=== PATIENT | male | born 1985 | race Caucasian/White ===

== ENCOUNTER 2018-07-21 05:22 | Inpatient (IN) | payer MEDICARE, OTHER ==
[~2018-07-21] VITALS: Ht 162.6 cm; Wt 97.0 kg
[~2018-07-21 05:22] MED LIST: ALBUTEROL INH; AMLO-150 PO; CALC0.25 PO; CALC667C PO; CHOL500045 PO; CLON0.1T22 PO; DOXA2TAB9 PO; FLUC200T PO; FURO40TA6 PO; INSU100I29 SQ-INSULIN; INSU100V11 SQ; INSU100V8 SQ; LOPE2CAP PO; METO25TA35 PO; METO50TA82 PO; MYCO250C PO; NOVALOG; OMEP-110 PO; ONDA4TAB10 PO; ONDA4TAB7 PO; PRAV20TA2 PO; PRED10TA14 PO; PRED5TAB PO; SODI650T PO; SULF1TAB23 PO; TACR1CAP4 PO; [UNRECOGNIZED DRUG - OTHER]; lantus
--- NOTE | 2018-07-21 05:34 | NUR ---
PT. TO ED WITH C/O N/V AND ABD PAIN SINCE YESTERDAY. SKIN PWD. PT. STATES "I JUST WANT TO MAKE SURE NOTHING IS WRONG WITH MY HX OF TRANSPLANTS." PT. CHANGING INTO GOWN; AWARE OF NEED FOR URINE SAMPLE. AWAITING PROVIDER EVAL. CALL LIGHT IN REACH.
--- NOTE | 2018-07-21 05:54 | NUR ---
URINE HAS BEEN SENT TO LAB. IV STARTED AND LABS DRAWN. IVF INFUSING PER ORDER. DR. MUKHERJEE AT DISCUSSING POC WITH PT. CALL LIGHT IN REACH. ALL SAFETY MEASURES OBSERVED.
[2018-07-21 06:00] LABS: MICROSCOPIC NOT IND
[2018-07-21] MEDS ORDERED: SODIUM CHLORIDE 0.9% 1,000ML IVBOLUS ONE (06:00)
[2018-07-21] MEDS ORDERED: SODIUM CHLORIDE FLUSH 10ML SYR IVF ONE (06:00)
[2018-07-21] MEDS ORDERED: ONDANSETRON 2MG/ML, 2ML IVPush ONE (06:00)
[2018-07-21 06:03] LABS: CULTURE INDICATED? NO
[2018-07-21 06:12] LABS: MEAN CORPUSCULAR HEMOGLOBIN 30.1 pg (27.5-34.5); MEAN CORPUSCULAR HGB CONC 33.8 g/dL (33.2-36.2); MEAN CORPUSCULAR VOLUME 89.1 fL (81-97); MEAN PLATELET VOLUME 10.5 fL (7.4-10.4); PLATELET COUNT 208 x10^3/uL (130-400); RED BLOOD COUNT 5.18 x10^6/uL (4.38-5.82); RED CELL DISTRIBUTION WIDTH 13.2 % (9.4-14.8)
[2018-07-21 06:22] LABS: ALANINE AMINOTRANSFERASE 48 U/L (12-78); ALBUMIN 3.9 g/dL (3.4-5.0); ANION GAP 7 mmol/L (5-15); CALCIUM 8.7 mg/dL (8.5-10.1); CHLORIDE 107 mmol/L (98-107)
[2018-07-21 06:24] LABS: ALKALINE PHOSPHATASE 60 U/L (45-117); BILIRUBIN,TOTAL 1.4 mg/dL (0.2-1.0); CREATININE 1.29 mg/dL (0.7-1.3)
--- NOTE | 2018-07-21 06:30 | NUR ---
IVF COMPLETED. VS UPDATED. PT. DENIES NEEDS. CALL LIGHT IN REACH. SAFETY MEASURES OBSERVED. ALL LABS BACK; CT TO BE ORDERED PER DR. MUKHERJEE.
[2018-07-21 06:43] LABS: BASOPHILS # (AUTO) 0.04 x10^3/uL (0-0.1); BASOPHILS % (AUTO) 0 % (0-1); EOSINOPHILS # (AUTO) 0.11 x10^3/uL (0-0.4); EOSINOPHILS % (AUTO) 1 % (1-7); LYMPHOCYTES # (AUTO) 1.01 x10^3/uL (1-3.4); LYMPHOCYTES % (AUTO) 7 % (22-44); MD SCAN; MONOCYTES # (AUTO) 1.63 x10^3/uL (0.2-0.8); MONOCYTES % (AUTO) 11 % (2-9); NEUTROPHILS % (AUTO) 81 % (42-75)
--- NOTE | 2018-07-21 07:01 | NUR ---
REPORT RECEIVED, CARE ASSUMED. PT SITTING UP ON GURNEY, NO ACUTE DISTRESS NOTED. IV FLUIDS COMPLETED. NO C/O N/V AT THIS TIME. PT AWARE OF WAITING FOR CT RESULTS. NO NEEDS EXPRESSED AT THIS TIME.
[2018-07-21] MEDS ORDERED: TACR1CAP4 PO (07:16)
[2018-07-21] MEDS ORDERED: OMEP-110 PO (07:16)
[2018-07-21] MEDS ORDERED: MYCO360T PO (07:16)
[2018-07-21] MEDS ORDERED: ASPI-496 PO (07:17)
[2018-07-21] MEDS ORDERED: CEFTRIAXONE PMX 1GM/50ML 50 ML IV ONE (07:30)
[2018-07-21] MEDS ORDERED: CEFTRIAXONE PMX 1GM/50ML 50 ML ONE (07:36)
--- NOTE | 2018-07-21 07:46 | NUR ---
IV ROCEPHIN INFUSING ORDERED. CONFIRMED WITH DR MUKHERJEE, NO BLOOD CULTURES NEEDED. PT AWARE OF POC. NO NEEDS EXPRESSED AT THIS TIME.
[2018-07-21] MEDS ORDERED: BISACODYL 10 MG SUPP PR PRN (08:30)
[2018-07-21] MEDS ORDERED: hydrALAzine 20 MG/ML, 1ML IVPush PRN (08:30)
[2018-07-21] MEDS ORDERED: DOCUSATE 100 MG CAPSULE PO PRN (08:30)
[2018-07-21] MEDS ORDERED: morphine SULFATE 10 MG/ML, 1ML IVPush PRN (08:30)
[2018-07-21] MEDS ORDERED: LABETALOL 5MG/ML, 20ML IVPush PRN (08:30)
[2018-07-21] MEDS ORDERED: ACETAMINOPHEN 325 MG TABLET PO PRN (08:30)
[2018-07-21] MEDS ORDERED: POLYETHYLENE GLYCOL 17 GM PACKET PO PRN (08:30)
[2018-07-21] MEDS ORDERED: PREDNISONE 5 MG PO SCH (09:00)
--- NOTE | 2018-07-21 09:30 | NUR ---
PT AMB TO BR, GAIT STEADY. PT PROVIDED WITH WARM BLANKET. PT AWARE OF WAITING FOR ROOM ASSIGNMENT. PTS AT BEDSIDE. NO NEEDS EXPRESSED AT THIS TIME.
[2018-07-21] MEDS ORDERED: METRONIDAZOLE PMX 500MG/100ML 100 ML ONE (09:38)
[2018-07-21] MEDS ORDERED: hydrALAzine 20 MG/ML, 1ML ONE (09:38)
[2018-07-21] MEDS ORDERED: NS + 20MEQ KCL 1,000 ML IV ONE (09:39)
--- NOTE | 2018-07-21 09:48 | NUR ---
CALL TO CHARY Morocho NP, DISCUSSED PT TO HAVE SURGERY AT 1330. ANTIREJECTION MEDICATIONS TO BE GIVEN WITH SIP OF WATER. DISCUSSED ROCEPHIN 2GM ORDER, PT HAS ALREADY RECEIVED 1 GM. TRANSPORTATION SUPERVISOR WILL PLACE ORDER FOR AN ADDITION GRAM OF ROCEPIN AND 2 GRAM ORDER CAN START TOMORROW. PT BP ELEVATED 178/107. PT TO BE MEDICATED WITH LABATOLOL.
[2018-07-21] MEDS: TACROLIMUS 1 MG CAPSULE PO SCH ×2 (09:58→21:13)
[2018-07-21] MEDS: METRONIDAZOLE PMX 500MG/100ML 100 ML IV SCH ×2 (09:59→17:21)
[2018-07-21] MEDS: NS + 20MEQ KCL 1,000 ML IV SCH ×2 (10:00→17:21)
--- NOTE | 2018-07-21 10:14 | NUR ---
REPORT CALLED TO ERROL BROWN IN PRE OP HOLDING. POC DISCUSSED. PT TO GO TO ROOM 1A.
[2018-07-21] MEDS ORDERED: LABETALOL 5 MG/ML SYRINGE IVPush PRN ×2 (10:30)
[2018-07-21] MEDS ORDERED: PRED5TAB PO (10:54)
[2018-07-21] MEDS ORDERED: BUPIVACAINE/PF 0.5% ONE (13:23)
[2018-07-21] MEDS ORDERED: CEFAZOLIN 1,000 MG ONE (13:33)
[2018-07-21] MEDS ORDERED: NEOSTIGMINE 1 MG/ML, 10ML ONE (13:33)
[2018-07-21] MEDS ORDERED: SUCCINYLCHOLINE 20 MG/ML, 10ML ONE (13:33)
[2018-07-21] MEDS ORDERED: GLYCOPYRROLATE 0.2MG/1ML, 5ML ONE (13:33)
[2018-07-21] MEDS ORDERED: FENTANYL PF 250 MCG/5ML ONE (13:33)
[2018-07-21] MEDS ORDERED: ROCURONIUM 10MG/ML,5ML ONE (13:33)
[2018-07-21] MEDS ORDERED: MIDAZOLAM 1 MG/ML, 2ML ONE (13:33)
[2018-07-21] MEDS ORDERED: PROPOFOL 10 MG/ML, 20ML ONE (13:33)
[2018-07-21] MEDS ORDERED: HYDROCORTISONE 100 MG INJ. ONE (13:48)
[2018-07-21] MEDS ORDERED: PROMETHAZINE 25 MG SUPP PR PRN (14:00)
[2018-07-21] MEDS ORDERED: ONDANSETRON ODT 8 MG PO PRN (14:00)
[2018-07-21] MEDS ORDERED: HYDROmorphone 2 MG/ML, 1ML IVPush PRN (14:00)
[2018-07-21] MEDS ORDERED: PROMETHAZINE 25 MG/ML, 1ML IV PRN (14:00)
[2018-07-21] MEDS ORDERED: hydrALAzine 20 MG/ML, 1ML IV PRN (14:00)
[2018-07-21] MEDS ORDERED: LABETALOL 5MG/ML, 20ML IV PRN (14:00)
[2018-07-21] MEDS ORDERED: MORPHINE SULFATE 4 MG/ML, 1ML IVPush PRN (14:00)
[2018-07-21] MEDS ORDERED: PROMETHAZINE 25 MG/ML, 1ML IM PRN ×2 (14:00)
[2018-07-21] MEDS ORDERED: PROMETHAZINE 12.5 MG SUPP PR PRN (14:00)
[2018-07-21] MEDS ORDERED: MEPERIDINE/PF 25MG/0.5ML IVPush PRN (14:00)
[2018-07-21] MEDS ORDERED: OXYcodone 5 MG/5 ML ORAL.SOL UDC PO PRN (14:00)
[2018-07-21] MEDS ORDERED: ONDANSETRON 2MG/ML, 2ML IV PRN (14:00)
[2018-07-21] MEDS ORDERED: SUGAMMADEX 200 MG/2 ML IVPush ONE (14:46)
[2018-07-21] MEDS ORDERED: FENTANYL PF 100 MCG/2ML ONE (15:27)
[2018-07-21] MEDS ORDERED: OXYcodone 5 MG/5 ML ORAL.SOL UDC ONE (15:27)
[2018-07-21] MEDS ORDERED: ACETAMINOPHEN 650 MG/20.3 ML UDC ONE (15:27)
[2018-07-21] MEDS: FENTANYL PF 100 MCG/2ML IV PRN ×2 (15:30→15:50)
[2018-07-21] MEDS: OMEPRAZOLE 20 MG CAPSULE.DR PO SCH (16:44)
[2018-07-21] MEDS ORDERED: LORazepam 1MG TABLET PO PRN (17:00)
[2018-07-21] MEDS ORDERED: LORazepam 2 MG/ML, 1ML IV PRN (17:00)
[2018-07-21 19:19] VITALS: BP 129/85
[2018-07-21] MEDS ORDERED: ASPIRIN 81 MG TABLET EC PO SCH (21:00)
[2018-07-21] MEDS: ONDANSETRON 2MG/ML, 2ML IVPush PRN (23:49)
[2018-07-22 00:49] VITALS: BP 108/66
[2018-07-22] MEDS: METRONIDAZOLE PMX 500MG/100ML 100 ML IV SCH ×3 (01:44→16:57)
[2018-07-22 03:53] LABS: MEAN CORPUSCULAR HEMOGLOBIN 29.9 pg (27.5-34.5); MEAN CORPUSCULAR HGB CONC 33.2 g/dL (33.2-36.2); MEAN CORPUSCULAR VOLUME 90.1 fL (81-97); MEAN PLATELET VOLUME 10.3 fL (7.4-10.4); PLATELET COUNT 188 x10^3/uL (130-400); RED BLOOD COUNT 4.73 x10^6/uL (4.38-5.82); RED CELL DISTRIBUTION WIDTH 13.4 % (9.4-14.8)
[2018-07-22 03:57] LABS: ALANINE AMINOTRANSFERASE 33 U/L (12-78); ALBUMIN 3.2 g/dL (3.4-5.0); ANION GAP 6 mmol/L (5-15); CALCIUM 8.4 mg/dL (8.5-10.1); CHLORIDE 111 mmol/L (98-107); CREATININE 0.99 mg/dL (0.7-1.3)
[2018-07-22 03:59] LABS: ALKALINE PHOSPHATASE 54 U/L (45-117); BILIRUBIN,TOTAL 0.9 mg/dL (0.2-1.0); TOTAL PROTEIN 7.2 g/dL (6.4-8.2)
[2018-07-22 04:46] LABS: BASOPHILS # (AUTO) 0.05 x10^3/uL (0-0.1); BASOPHILS % (AUTO) 0 % (0-1); EOSINOPHILS # (AUTO) 0.03 x10^3/uL (0-0.4); EOSINOPHILS % (AUTO) 0 % (1-7); LYMPHOCYTES # (AUTO) 0.92 x10^3/uL (1-3.4); LYMPHOCYTES % (AUTO) 5 % (22-44); MD SCAN; MONOCYTES % (AUTO) 9 % (2-9); NEUTROPHILS # (AUTO) 15.63 x10^3/uL (1.8-6.8); NEUTROPHILS % (AUTO) 85 % (42-75)
[2018-07-22 06:57] VITALS: BP 130/75
[2018-07-22] MEDS: OMEPRAZOLE 20 MG CAPSULE.DR PO SCH (07:20)
[2018-07-22] MEDS: CEFTRIAXONE PMX 2GM/50ML 50 ML IV SCH (07:20)
[2018-07-22] MEDS: TACROLIMUS 1 MG CAPSULE PO SCH ×2 (07:20→21:26)
[2018-07-22] MEDS: NS + 20MEQ KCL 1,000 ML IV SCH (08:35)
[2018-07-22 12:02] VITALS: BP 131/83
[2018-07-22] MEDS ORDERED: HEPARIN 5,000 UNITS/ML, 1ML SQ SCH (13:00)
[2018-07-22] MEDS: HEPARIN 5,000 UNITS/ML, 1ML SQ SCH ×2 (13:15→21:28)
[2018-07-22 19:26] VITALS: BP 126/79
[2018-07-23] MEDS: METRONIDAZOLE PMX 500MG/100ML 100 ML IV SCH (01:58)
[2018-07-23 02:27] VITALS: BP 144/88
[2018-07-23] MEDS: NS + 20MEQ KCL 1,000 ML IV SCH (04:31)
[2018-07-23 05:23] LABS: BASOPHILS # (AUTO) 0.08 x10^3/uL (0-0.1); BASOPHILS % (AUTO) 1 % (0-1); EOSINOPHILS # (AUTO) 0.15 x10^3/uL (0-0.4); EOSINOPHILS % (AUTO) 2 % (1-7); LYMPHOCYTES # (AUTO) 1.66 x10^3/uL (1-3.4); LYMPHOCYTES % (AUTO) 17 % (22-44); MD NO; MEAN CORPUSCULAR HEMOGLOBIN 29.8 pg (27.5-34.5); MEAN CORPUSCULAR HGB CONC 33.1 g/dL (33.2-36.2); MEAN CORPUSCULAR VOLUME 90.1 fL (81-97); MEAN PLATELET VOLUME 10.8 fL (7.4-10.4); MONOCYTES # (AUTO) 1.16 x10^3/uL (0.2-0.8); MONOCYTES % (AUTO) 12 % (2-9); NEUTROPHILS # (AUTO) 6.87 x10^3/uL (1.8-6.8); NEUTROPHILS % (AUTO) 69 % (42-75); PLATELET COUNT 165 x10^3/uL (130-400); RED BLOOD COUNT 4.29 x10^6/uL (4.38-5.82); RED CELL DISTRIBUTION WIDTH 13.5 % (9.4-14.8)
[2018-07-23 05:26] LABS: ANION GAP 4 mmol/L (5-15); CALCIUM 8.4 mg/dL (8.5-10.1); CHLORIDE 110 mmol/L (98-107); CREATININE 1.13 mg/dL (0.7-1.3)
[2018-07-23] MEDS: HEPARIN 5,000 UNITS/ML, 1ML SQ SCH (05:44)
[2018-07-23] MEDS: CEFTRIAXONE PMX 2GM/50ML 50 ML IV SCH (07:35)
[2018-07-23] MEDS: ONDANSETRON 2MG/ML, 2ML IVPush PRN (07:44)
[2018-07-23 08:43] VITALS: BP 166/91
[2018-07-23] MEDS: TACROLIMUS 1 MG CAPSULE PO SCH (08:53)
[2018-07-23] MEDS: OMEPRAZOLE 20 MG CAPSULE.DR PO SCH (08:53)
[2018-07-23] MEDS ORDERED: OXYC-302 PO (13:38)
== END 2018-07-23 13:50 | disposition home or self-care (01) | DRG 854 ==
LOC: ED 07:49 → EDIP 07:50 → ED 08:35 → 4NOR 16:30 → DCLOUNGE 07-23 13:36
PROVIDERS: ADMIT Internal Medicine; ATTEND Internal Medicine
PROC: 0DTJ4ZZ Resection of Appendix, Percutaneous Endoscopic Approach (ICD-10-PCS; principal; 2018-07-21 13:30)
DX: A41.9 Sepsis, unspecified organism (principal); Z94.83 Pancreas transplant status; R17 Unspecified jaundice; Z94.0 Kidney transplant status; K35.20 Acute appendicitis with generalized peritonitis, without abscess; E10.22 Type 1 diabetes mellitus with diabetic chronic kidney disease; M10.9 Gout, unspecified; E10.40 Type 1 diabetes mellitus with diabetic neuropathy, unspecified; I13.10 Hypertensive heart and chronic kidney disease without heart failure, with stage 1 through stage 4 chronic kidney disease, or unspecified chronic kidney disease; N18.2 Chronic kidney disease, stage 2 (mild); Z79.4 Long term (current) use of insulin; Z88.8 Allergy status to other drugs, medicaments and biological substances; Z79.82 Long term (current) use of aspirin; Z82.3 Family history of stroke; Z82.49 Family history of ischemic heart disease and other diseases of the circulatory system; Z83.3 Family history of diabetes mellitus
CPT/HCPCS: 36415; 74176; 80048; 80053; 81003; 85025; 88304; 96361; 96365; 99285; G0378; J0690; J0696; J1644; J2250; J2405; J2704; J2710; J3010; J3480; J3490; J7507; J7518; J0330; J1720; J7030; J7512

== ENCOUNTER 2019-12-24 09:22 | Emergency (ER) | payer OTHER, MEDICARE ==
[~2019-12-24] VITALS: Ht 162.6 cm; Wt 104.8 kg
[~2019-12-24 09:22] MED LIST changes: +ASPI-496 PO; +MYCO360T PO; +OXYC-302 PO; -TACR1CAP4 PO; +TACR1CAP5 PO
[2019-12-24 10:28] LABS: BASOPHILS # (AUTO) 0.01 x10^3/uL (0-0.1); BASOPHILS % (AUTO) 0 % (0-1); EOSINOPHILS # (AUTO) 0.17 x10^3/uL (0-0.4); EOSINOPHILS % (AUTO) 2 % (1-7); LYMPHOCYTES # (AUTO) 0.69 x10^3/uL (1-3.4); LYMPHOCYTES % (AUTO) 7 % (22-44); MD NO; MEAN CORPUSCULAR HEMOGLOBIN 29.6 pg (27.5-34.5); MEAN CORPUSCULAR HGB CONC 33.1 g/dL (33.2-36.2); MEAN PLATELET VOLUME 10.3 fL (7.4-10.4); MONOCYTES # (AUTO) 1.17 x10^3/uL (0.2-0.8); MONOCYTES % (AUTO) 11 % (2-9); NEUTROPHILS # (AUTO) 8.46 x10^3/uL (1.8-6.8); NEUTROPHILS % (AUTO) 81 % (42-75); PLATELET COUNT 180 x10^3/uL (130-400); RED BLOOD COUNT 4.73 x10^6/uL (4.38-5.82)
[2019-12-24 10:32] LABS: ALBUMIN 3.4 g/dL (3.4-5.0); ANION GAP 6 mmol/L (5-15); CALCIUM 9.1 mg/dL (8.5-10.1); CHLORIDE 112 mmol/L (98-107)
[2019-12-24] MEDS ORDERED: APIXABAN 5 MG TABLET PO ONE (11:00)
[2019-12-24] MEDS ORDERED: APIXABAN 5 MG TABLET ONE (11:11)
[2019-12-24 11:27] VITALS: BP 160/90
== END 2019-12-24 11:29 | disposition home or self-care (01) ==
LOC: ED 11:23
DX: I82.622 Acute embolism and thrombosis of deep veins of left upper extremity (principal); E11.9 Type 2 diabetes mellitus without complications; I10 Essential (primary) hypertension
CPT/HCPCS: 36415; 80048; 82040; 85025; 99284

== ENCOUNTER 2020-05-21 22:16 | Inpatient (IN) | payer OTHER, MEDICARE ==
[~2020-05-21] VITALS: Ht 162.6 cm; Wt 102.7 kg
[2020-05-21] MEDS ORDERED: AZITHROMYCIN 500 MG in SODIUM CHLORIDE 0.9% 250 ML IVPB ONE (22:30)
[2020-05-21] MEDS ORDERED: CEFTRIAXONE PMX 1GM/50ML 50 ML IVPB ONE (22:30)
[2020-05-21] MEDS ORDERED: DEXAMETHASONE 4 MG/ML, 1ML IVPush ONE (22:30)
[2020-05-21] MEDS ORDERED: SODIUM CHLORIDE FLUSH 10ML SYR IVF ONE (22:30)
[2020-05-21] MEDS ORDERED: SODIUM CHLORIDE 0.9% 1,000ML IVBOLUS ONE (22:30)
--- NOTE | 2020-05-21 22:41 | NUR ---
ON ARRIVAL TO ED, PT ON 4L O2 NC. O2 DECREASED TO 2L, PT O2 SAT 100%.
[2020-05-21 23:07] LABS: BASOPHILS % (AUTO) 0 % (0-1); EOSINOPHILS % (AUTO) 1 % (1-7); LYMPHOCYTES % (AUTO) 9 % (22-44); MEAN CORPUSCULAR HEMOGLOBIN 29.3 pg (27.5-34.5); MEAN CORPUSCULAR HGB CONC 33.8 g/dL (33.2-36.2); MEAN PLATELET VOLUME 9.5 fL (7.4-10.4); MONOCYTES % (AUTO) 13 % (2-9); NEUTROPHILS % (AUTO) 77 % (42-75); PLATELET COUNT 188 x10^3/uL (130-400); RED BLOOD COUNT 4.82 x10^6/uL (4.38-5.82); RED CELL DISTRIBUTION WIDTH 13.8 % (9.4-14.8)
[2020-05-21] MEDS ORDERED: METO25TA35 PO (23:10)
[2020-05-21] MEDS ORDERED: BENZ-17 PO (23:10)
[2020-05-21 23:13] LABS: ALANINE AMINOTRANSFERASE 41 U/L (12-78); ALBUMIN 3.1 g/dL (3.4-5.0); ANION GAP 4 mmol/L (5-15); CALCIUM 8.5 mg/dL (8.5-10.1); CHLORIDE 111 mmol/L (98-107); CREATININE 1.33 mg/dL (0.7-1.3)
[2020-05-21 23:15] LABS: ALKALINE PHOSPHATASE 34 U/L (45-117); BILIRUBIN,TOTAL 0.4 mg/dL (0.2-1.0); TOTAL PROTEIN 7.3 g/dL (6.4-8.2)
[2020-05-21] MEDS ORDERED: CEFTRIAXONE PMX 1GM/50ML 50 ML ONE (23:38)
[2020-05-21] MEDS ORDERED: DEXAMETHASONE 4 MG/ML, 5ML ONE (23:42)
[2020-05-21 23:57] LABS: MD SCAN
[2020-05-22] MEDS ORDERED: ASCO500C10 PO (01:21)
[2020-05-22] MEDS ORDERED: MELA10TA7 PO (01:21)
[2020-05-22] MEDS ORDERED: PRED10TA14 PO (01:21)
[2020-05-22] MEDS ORDERED: TACR1CAP5 PO (01:21)
[2020-05-22] MEDS ORDERED: MYCO360T3 PO (01:21)
[2020-05-22 01:22] VITALS: BP 131/84
[2020-05-22] MEDS ORDERED: AZITHROMYCIN 500 MG in SODIUM CHLORIDE 0.9% 250 ML IV SCH (02:30)
[2020-05-22] MEDS ORDERED: PHARMACY MAY ADJ FOR RENAL FX MC PRN (02:30)
[2020-05-22] MEDS ORDERED: CEFTRIAXONE PMX 1GM/50ML 50 ML IV SCH (02:30)
[2020-05-22] MEDS ORDERED: ACETAMINOPHEN 325 MG TABLET PO PRN ×2 (03:00→08:00)
[2020-05-22] MEDS ORDERED: PROMETHAZINE 25 MG/ML, 1ML IM PRN (03:00)
[2020-05-22] MEDS ORDERED: LABETALOL 5MG/ML, 20ML IVPush PRN (03:00)
[2020-05-22 04:19] LABS: TROPONIN I < 0.015 ng/mL (0.000-0.045)
[2020-05-22 05:42] LABS: BASOPHILS % (AUTO) 0 % (0-1); EOSINOPHILS % (AUTO) 0 % (1-7); LYMPHOCYTES % (AUTO) 8 % (22-44); MEAN CORPUSCULAR HEMOGLOBIN 29.3 pg (27.5-34.5); MEAN CORPUSCULAR HGB CONC 33.6 g/dL (33.2-36.2); MEAN PLATELET VOLUME 10.1 fL (7.4-10.4); MONOCYTES % (AUTO) 4 % (2-9); NEUTROPHILS % (AUTO) 88 % (42-75); PLATELET COUNT 182 x10^3/uL (130-400); RED BLOOD COUNT 4.78 x10^6/uL (4.38-5.82); RED CELL DISTRIBUTION WIDTH 13.8 % (9.4-14.8)
[2020-05-22] MEDS: ENOXAPARIN 60 MG/0.6 ML SQ SCH (05:49)
[2020-05-22 05:52] LABS: ANION GAP 3 mmol/L (5-15); CALCIUM 8.5 mg/dL (8.5-10.1); CHLORIDE 113 mmol/L (98-107)
[2020-05-22 05:58] LABS: CREATININE 1.29 mg/dL (0.7-1.3); TROPONIN I < 0.015 ng/mL (0.000-0.045)
[2020-05-22 06:17] LABS: MD SCAN
[2020-05-22 07:23] VITALS: BP 132/85
[2020-05-22] MEDS ORDERED: LACTOBACILLUS CHEW TABLET ONE (08:05)
[2020-05-22] MEDS: LACTOBACILLUS CHEW TABLET PO SCH ×3 (08:14→21:31)
[2020-05-22] MEDS: OMEPRAZOLE 20 MG CAPSULE.DR PO SCH (08:14)
[2020-05-22] MEDS: THIAMINE 100MG TABLET PO SCH (08:14)
[2020-05-22] MEDS: ASCORBIC ACID 500 MG TABLET PO SCH ×2 (08:14→17:10)
[2020-05-22] MEDS: CHOLECALCIFEROL 5,000u TAB PO SCH (08:14)
[2020-05-22] MEDS: BENZONATATE 100 MG CAPSULE PO SCH (08:14)
[2020-05-22] MEDS: ZINC SULFATE 220 MG CAPSULE PO SCH (08:14)
[2020-05-22] MEDS: DEXAMETHASONE 4 MG/ML, 1ML IVPush SCH (08:15)
[2020-05-22] MEDS ORDERED: METOPROLOL TARTRATE 25 MG TAB PO SCH (09:00)
[2020-05-22] MEDS: CARVEDILOL 6.25 MG TABLET PO SCH ×2 (09:09→17:09)
[2020-05-22 11:51] LABS: TROPONIN I < 0.015 ng/mL (0.000-0.045)
[2020-05-22 12:09] VITALS: BP 156/96
[2020-05-22 19:36] VITALS: BP 163/99
[2020-05-22] MEDS ORDERED: MELATONIN 5 MG TABLET PO SCH (21:00)
[2020-05-22] MEDS ORDERED: ASPIRIN 81 MG TABLET EC PO SCH (21:00)
[2020-05-22] MEDS ORDERED: TACROLIMUS 1 MG CAPSULE PO SCH (21:00)
[2020-05-22] MEDS: mycophenOLATE SODIUM 360MG DR PO SCH (21:32)
[2020-05-22] MEDS ORDERED: CEFTRIAXONE PMX 2GM/50ML 50 ML IVPB SCH (23:30)
[2020-05-23 00:20] VITALS: BP 149/90
[2020-05-23] MEDS: ENOXAPARIN 60 MG/0.6 ML SQ SCH (05:40)
[2020-05-23] MEDS: CARVEDILOL 6.25 MG TABLET PO SCH (05:40)
[2020-05-23 06:30] LABS: BASOPHILS % (AUTO) 0 % (0-1); EOSINOPHILS % (AUTO) 0 % (1-7); LYMPHOCYTES % (AUTO) 5 % (22-44); MEAN CORPUSCULAR HEMOGLOBIN 29.4 pg (27.5-34.5); MEAN CORPUSCULAR HGB CONC 33.5 g/dL (33.2-36.2); MEAN PLATELET VOLUME 9.6 fL (7.4-10.4); MONOCYTES % (AUTO) 11 % (2-9); NEUTROPHILS % (AUTO) 84 % (42-75); PLATELET COUNT 227 x10^3/uL (130-400); RED BLOOD COUNT 4.73 x10^6/uL (4.38-5.82); RED CELL DISTRIBUTION WIDTH 13.6 % (9.4-14.8)
[2020-05-23 06:35] LABS: CHLORIDE 113 mmol/L (98-107)
[2020-05-23 06:46] LABS: ALANINE AMINOTRANSFERASE 41 U/L (12-78); ALKALINE PHOSPHATASE 36 U/L (45-117); ANION GAP 6 mmol/L (5-15); BILIRUBIN,TOTAL 0.3 mg/dL (0.2-1.0); CREATININE 1.21 mg/dL (0.7-1.3); TOTAL PROTEIN 7.3 g/dL (6.4-8.2)
[2020-05-23 06:52] LABS: MD NO
[2020-05-23] MEDS: LACTOBACILLUS CHEW TABLET PO SCH (08:19)
[2020-05-23] MEDS: mycophenOLATE SODIUM 360MG DR PO SCH (08:19)
[2020-05-23] MEDS: ASCORBIC ACID 500 MG TABLET PO SCH (08:19)
[2020-05-23] MEDS: CHOLECALCIFEROL 5,000u TAB PO SCH (08:19)
[2020-05-23] MEDS: BENZONATATE 100 MG CAPSULE PO SCH (08:19)
[2020-05-23] MEDS: ZINC SULFATE 220 MG CAPSULE PO SCH (08:19)
[2020-05-23] MEDS: THIAMINE 100MG TABLET PO SCH (08:20)
[2020-05-23] MEDS: OMEPRAZOLE 20 MG CAPSULE.DR PO SCH (08:20)
[2020-05-23] MEDS: DEXAMETHASONE 4 MG/ML, 1ML IVPush SCH (08:20)
[2020-05-23 08:22] VITALS: BP 152/98
[2020-05-23] MEDS ORDERED: TACROLIMUS 1 MG CAPSULE PO SCH (09:00)
[2020-05-23] MEDS ORDERED: AMOX-291 PO (09:38)
[2020-05-23] MEDS ORDERED: DOXY100C2 PO (09:38)
[2020-05-23] MEDS ORDERED: CARV6.2512 PO (09:38)
[2020-05-23] MEDS ORDERED: ACID1TAB7 PO (09:38)
[2020-05-23] MEDS ORDERED: CARVEDILOL 6.25 MG TABLET PO SCH (18:00)
== END 2020-05-23 12:37 | disposition home or self-care (01) | DRG 871 ==
LOC: ED 23:43 → EDIP 05-22 00:21 → 4WST 05-22 01:06
PROVIDERS: ADMIT Family Medicine; ATTEND Internal Medicine
DX: A41.89 Other specified sepsis (principal); J12.89 Other viral pneumonia; J15.9 Unspecified bacterial pneumonia; J96.01 Acute respiratory failure with hypoxia; N17.0 Acute kidney failure with tubular necrosis; U07.1 COVID-19; N18.6 End stage renal disease; D84.9 Immunodeficiency, unspecified; I12.0 Hypertensive chronic kidney disease with stage 5 chronic kidney disease or end stage renal disease; T86.19 Other complication of kidney transplant; Z94.83 Pancreas transplant status; E10.319 Type 1 diabetes mellitus with unspecified diabetic retinopathy without macular edema; E10.43 Type 1 diabetes mellitus with diabetic autonomic (poly)neuropathy; E66.01 Morbid (severe) obesity due to excess calories; E10.22 Type 1 diabetes mellitus with diabetic chronic kidney disease; E78.5 Hyperlipidemia, unspecified; K31.84 Gastroparesis; Y83.0 Surgical operation with transplant of whole organ as the cause of abnormal reaction of the patient, or of later complication, without mention of misadventure at the time of the procedure; Z83.3 Family history of diabetes mellitus; Z82.49 Family history of ischemic heart disease and other diseases of the circulatory system; Z79.4 Long term (current) use of insulin; Z79.01 Long term (current) use of anticoagulants; Z99.2 Dependence on renal dialysis; Z68.39 Body mass index [BMI] 39.0-39.9, adult
CPT/HCPCS: 36415; 71045; 80048; 80053; 83036; 83605; 83615; 83735; 83880; 84100; 84145; 84484; 85025; 85379; 86140; 87040; 93005; 96365; 96375; G0378; J0456; J0696; J1100; J1650; J7507; J7518; J7030; J7050; U0003